=== PATIENT | female | born 1980 | race American Indian/Alaskan Native ===

== ENCOUNTER 2017-12-25 17:50 | Emergency (ER) | payer SELFPAY | END 2017-12-25 21:51 | disposition left against medical advice (07) | LOC: DL.ED 17:50 | DX: Z53.21 Procedure and treatment not carried out due to patient leaving prior to being seen by health care provider (principal) ==

== ENCOUNTER 2018-01-04 11:03 | Emergency (ER) | payer SELFPAY ==
[2018-01-04] MEDS ORDERED: Amoxicillin 500 MG Cap PO ONE (12:56)
[2018-01-04] MEDS ORDERED: metroNIDAZOLE 250 MG Tab PO ONE (12:57)
[2018-01-04] MEDS ORDERED: Lidocaine 2% Viscous Solution 15 ML Cup PO ONE (12:57)
[2018-01-04] MEDS ORDERED: Ibuprofen 600 MG Tab PO ONE (12:58)
--- NOTE | 2018-01-04 13:12 | EDM.PDOC ---
Scribed by Leyda Huang 01/04/18 1312 for Jun Dewitt MD ED HPI GENERAL MEDICAL PROBLEM - General Chief Complaint: General Stated Complaint: [id number] BAD INFECTION Time Seen by Provider: 01/04/18 12:45 Source of Information: Reports: Patient, RN, RN Notes Reviewed History Limitations: Reports: No Limitations - History of Present Illness INITIAL COMMENTS - FREE TEXT/NARRATIVE: Patient complains of dental pain to right lower molars. Patient states that she has had dental pain for several months because of chronic decay. Complains of increased pain with onset of swelling to the right jaw in the past week. States that she is unable to get into the dentist. Onset: Gradual Duration: Getting Worse Location: Reports: Other (teeth) Quality: Reports: Ache Severity: Severe Improves with: Reports: None Worsens with: Reports: None Associated Symptoms: Reports: No Other Symptoms Oral/Mouth Pain Score (Numeric/FACES): 6 - Related Data Allergies Allergy/AdvReac Type Severity Reaction Status Date / Time rizatriptan [From Maxalt] Allergy Anaphylactic Verified 01/04/18 12:14 Shock Home Meds: Home Meds Escitalopram [Lexapro] 15 mg PO DAILY 01/04/18 [History] Ibuprofen 600 mg PO ASDIRECTED PRN 01/04/18 [History] Past Medical History HEENT History: Reports: None Cardiovascular History: Reports: None Respiratory History: Reports: None Gastrointestinal History: Reports: None Genitourinary History: Reports: None STRANNER History: Reports: None Musculoskeletal History: Reports: None Neurological History: Reports: None Psychiatric History: Reports: None Endocrine/Metabolic History: Reports: None Hematologic History: Reports: None Immunologic History: Reports: None Oncologic (Cancer) History: Reports: None Dermatologic History: Reports: None - Infectious Disease History Infectious Disease History: Reports: Chicken Pox - Past Surgical History Head Surgeries/Procedures: Reports: None Female Surgical History: Reports: Cystoscopy, Tubal Ligation Social & Family History - Family History Family Medical History: Noncontributory - Tobacco Use Smoking Status *Q: Current Every Day Smoker Years of Tobacco use: 20 Packs/Tins Daily: 0.5 Second Hand Smoke Exposure: No - Caffeine Use Caffeine Use: Reports: Coffee, Tea - Recreational Drug Use Recreational Drug Use: No ED ROS GENERAL - Review of Systems Review Of Systems: ROS reveals no pertinent complaints other than HPI. ED EXAM, GENERAL - Physical Exam Exam: See Below Exam Limited By: No Limitations General Appearance: Obese Ears: Normal External Exam, Normal Canal, Hearing Grossly Normal, Normal TMs Nose: Normal Inspection Throat/Mouth: Normal Lips, Normal Oropharynx, No Airway Compromise, Other ( extensive chronic dental decay with nonfluctuant swelling of the right gums adjacent to mandibular molars with mild right facial swelling, no erythema, no increased warmth.) Head: Atraumatic, Normocephalic Neck: Normal Inspection Respiratory/Chest: No Respiratory Distress Neurological: Alert, Oriented, CN II-XII Intact, Normal Cognition, Normal Gait, Normal Reflexes, No Motor/Sensory Deficits Psychiatric: Normal Affect, Normal Mood Skin Exam: Warm, Dry, Intact, Normal Color, No Rash Course - Vital Signs Last Recorded V/S: Last Vital Signs Temp 36.5 C 01/04/18 12:08 Pulse 70 01/04/18 12:08 Resp 16 01/04/18 12:08 BP 131/86 01/04/18 12:08 Pulse Ox 100 01/04/18 12:08 - Orders/Labs/Meds Meds: Medications Discontinued Medications Generic Name Dose Route Start Last Admin Trade Name Freq PRN Reason Stop Dose Admin Amoxicillin 500 mg 01/04/18 12:56 Amoxil PO 01/04/18 12:57 ONETIME ONE Ibuprofen 600 mg 01/04/18 12:58 Motrin PO 01/04/18 12:59 ONETIME ONE Lidocaine HCl 15 ml 01/04/18 12:57 Xylocaine 2% Viscous PO 01/04/18 12:58 ONETIME ONE Metronidazole 500 mg 01/04/18 12:57 Metronidazole PO 01/04/18 12:58 ONETIME ONE Departure - Departure Time of Disposition: 12:58 Disposition: Home, Self-Care 01 Condition: Good Clinical Impression: Dental abscess, Dental caries - Discharge Information Instructions: Dental Abscess, [id number] Forms: ED Department Discharge Additional Instructions: RX: Flagyl 500mg. RX: Amoxicillin 500mg. RX: Viscous Lidocaine 2%. RX: Ibuprofen 600mg. Follow up with dentist at first available appointment. I have read and agree with the documentation that has been completed regarding this visit. By signing this record, I attest that the documentation was completed in my physical presence and is an accurate record of the encounter.
== END 2018-01-04 13:26 | disposition home or self-care (01) ==
LOC: DL.ED 11:03
DX: K04.7 Periapical abscess without sinus (principal); K02.9 Dental caries, unspecified; F17.210 Nicotine dependence, cigarettes, uncomplicated; Z88.8 Allergy status to other drugs, medicaments and biological substances; Z79.899 Other long term (current) drug therapy
CPT/HCPCS: 99283; A9270

== ENCOUNTER 2020-12-22 16:58 | Emergency (ER) | payer BC ==
[2020-12-22] MEDS ORDERED: predniSONE 20 MG Tab PO ONE (19:28)
[2020-12-22] MEDS ORDERED: diphenhydrAMINE 50 MG Cap PO ONE (19:28)
--- NOTE | 2020-12-22 19:30 | EDM.PDOC ---
ED HPI GENERAL MEDICAL PROBLEM - General Chief Complaint: General Stated Complaint: FLUID BUILD UP SCALP, FORHEAD, BACK OF NECK Time Seen by Provider: 12/22/20 19:15 Source of Information: Reports: Patient History Limitations: Reports: No Limitations - History of Present Illness INITIAL COMMENTS - FREE TEXT/NARRATIVE: Swelling burning to scalp after dying hair yesterday, tonight forehead more swollen eyes and lips feel puffy. No breathing difficulty - Related Data Allergies Allergy/AdvReac Type Severity Reaction Status Date / Time rizatriptan [From Maxalt] Allergy Anaphylactic Verified 12/22/20 18:13 Shock Home Meds: Home Meds Escitalopram [Lexapro] 10 mg PO DAILY 01/04/18 [History] Ibuprofen 600 mg PO ASDIRECTED PRN 01/04/18 [History] Albuterol Sulfate [Albuterol Sulfate HFA] 2 puff INH Q6H PRN 12/22/20 [History] Phentermine HCl 37.5 mg PO DAILY 12/22/20 [History] Topiramate 25 mg PO BEDTIME 12/22/20 [History] Past Medical History HEENT History: Reports: None Cardiovascular History: Reports: None Respiratory History: Reports: Other (See Below) Other Respiratory History: RAD Gastrointestinal History: Reports: None Genitourinary History: Reports: None [employer]OR [employer]OR History: Reports: None Musculoskeletal History: Reports: None Neurological History: Reports: Migraines Psychiatric History: Reports: Anxiety Endocrine/Metabolic History: Reports: None Hematologic History: Reports: None Immunologic History: Reports: None Oncologic (Cancer) History: Reports: None Dermatologic History: Reports: None - Infectious Disease History Infectious Disease History: Reports: Chicken Pox, Novel Coronavirus - Past Surgical History Head Surgeries/Procedures: Reports: None GI Surgical History: Reports: Other (See Below) Other GI Surgeries/Procedures: Laparoscopy Female Surgical History: Reports: Cystoscopy, Tubal Ligation Social & Family History - Family History Family Medical History: No Pertinent Family History - Tobacco Use Tobacco Use Status *Q: Current Every Day Tobacco User Years of Tobacco use: 25 Packs/Tins Daily: 1 - Caffeine Use Caffeine Use: Reports: Coffee, Tea ED ROS GENERAL - Review of Systems Review Of Systems: Comprehensive ROS is negative, except as noted in HPI. ED EXAM, GENERAL - Physical Exam Exam: See Below Exam Limited By: No Limitations General Appearance: Alert, Mild Distress Eye Exam: Bilateral Eye: EOMI, Periorbital Changes (mild edema) Ears: Normal External Exam, Hearing Grossly Normal Nose: Normal Inspection Throat/Mouth: Normal Inspection, Normal Voice, No Airway Compromise Head: Facial Swelling (mild) Neck: Other (mild occipital lymphadenopathy) Respiratory/Chest: No Respiratory Distress, Lungs Clear Cardiovascular: Normal Peripheral Pulses, Regular Rate, Rhythm GI/Abdominal: Normal Bowel Sounds Extremities: Normal Inspection Neurological: Alert, Oriented Psychiatric: Normal Affect, Normal Mood Skin Exam: Warm, Dry. No: Rash Course - Vital Signs Last Recorded V/S: Last Vital Signs Temp 98.1 F 12/22/20 18:02 Pulse 98 12/22/20 18:02 Resp 16 12/22/20 18:02 BP 142/89 H 12/22/20 18:02 Pulse Ox 99 12/22/20 18:02 - Orders/Labs/Meds Meds: Medications Discontinued Medications Generic Name Dose Route Start Last Admin Trade Name Freq PRN Reason Stop Dose Admin Diphenhydramine HCl 50 mg 12/22/20 19:28 12/22/20 19:35 Diphenhydramine 50 Mg Cap PO 12/22/20 19:29 50 mg ONETIME ONE Administration Prednisone 40 mg 12/22/20 19:28 12/22/20 19:35 Prednisone 20 Mg Tab PO 12/22/20 19:29 40 mg ONETIME ONE Administration Departure - Departure Time of Disposition: 19:30 Disposition: Home, Self-Care 01 Condition: Good Clinical Impression: Contact allergic reaction - Discharge Information *PRESCRIPTION DRUG MONITORING PROGRAM REVIEWED*: Not Applicable *COPY OF PRESCRIPTION DRUG MONITORING REPORT IN PATIENT JEIMY: Not Applicable Instructions: Allergies, Adult, [id number], Contact Dermatitis, [id number] Forms: ED Department Discharge Additional Instructions: benadryl 25-50mg every 6 hours as needed for itching Prednisone 20mg x 3 days 10mg x 3 days antibiotic ointment to scalp sores daily as needed follow up if symptoms worsen or difficulty breathing Sepsis Event Note (ED) - Evaluation Sepsis Screening Result: No Definite Risk - Focused Exam Vital Signs: Vital Signs Temp Pulse Resp BP Pulse Ox 12/22/20 18:02 98.1 F 98 16 142/89 H 99
== END 2020-12-22 19:39 | disposition home or self-care (01) ==
LOC: DL.ED 16:58
DX: R59.0 Localized enlarged lymph nodes (principal); T49.8X5A Adverse effect of other topical agents, initial encounter; J45.909 Unspecified asthma, uncomplicated; Z86.16 Personal history of COVID-19; Z72.0 Tobacco use; Z88.8 Allergy status to other drugs, medicaments and biological substances; Z79.899 Other long term (current) drug therapy
CPT/HCPCS: 99283; 99284; J7512; Q0163

== ENCOUNTER 2022-01-13 10:56 | Emergency (ER) | payer SELFPAY ==
[2022-01-13 13:11] LABS: ANION GAP 11.4 mEq/L (7-13); CHLORIDE,CL 106 mmol/L (98-107); SODIUM,NA 140 mmol/L (136-145)
== END 2022-01-13 14:45 | disposition home or self-care (01) ==
LOC: DL.ED 10:56
DX: L65.9 Nonscarring hair loss, unspecified (principal); D50.9 Iron deficiency anemia, unspecified; Z88.8 Allergy status to other drugs, medicaments and biological substances; Z72.0 Tobacco use; Z86.16 Personal history of COVID-19
CPT/HCPCS: 36415; 80053; 82728; 83540; 83550; 84443; 85025; 85651; 86140; 99284